=== PATIENT | female | born 1990 | race African-American/Black ===

== ENCOUNTER 2017-03-13 12:53 | Emergency (ER) | payer MEDICAID ==
[~2017-03-13] VITALS: Ht 157.5 cm; Wt 108.0 kg
[~2017-03-13 12:53] MED LIST: CIPR500T2 PO; CYCL5TAB PO; FERR324T4 PO; FLINT2; MEDR150I IM; MELO7.5T4 PO
[2017-03-13 13:17] VITALS: BP 136/87; PULSE 86; RESP 18; TEMP 98.8; O2SAT 100
[2017-03-13] MEDS ORDERED: [UNRECOGNIZED DRUG - REMARK] (13:59)
--- NOTE | 2017-03-13 14:04 | PD ---
HPI Chief Complaint: Complaint Time Seen by Provider: 13:53 Travel History International Travel<30 days: No Contact w/Intl Traveler<30days: No Traveled to known affect area: No History of Present Illness HPI This 26-year-old female is complaining of burning with urination. She says that hurts a lot when she urinates for several minutes after she urinates or abdominal pain. She's had some vaginal discharge. She has had 4 children in the past. He is on control pills. She is currently on Macrobid for urinary tract infection. Her symptoms have been going on for about 6 days. 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13) Diminished Hearing: No Endocrine: No Gastrointestinal Disorders: Yes (GALLSTONES) Genitourinary: Yes (UTI) Hypertension: Yes Immune Disorder: No Kidney Stones: Yes Musculoskeletal: No Neurologic: Yes Psychiatric: Yes Reproductive: No Respiratory: Yes (PNUEMONIA) Immunizations Current: No Migraines: Yes Radiation Therapy: No Sickle Cell Disease: No Sleep Apnea: No ?: Unknown Menopausal: No : 3 Para: 3 Miscarriage: 0 : 0 Past Surgical History AICD: No Arteriovenous Shunt: No Cholecystectomy: Yes Insulin Pump: No Joint Replacement: No Pacemaker: No Social History Alcohol Use: No Tobacco Use: Yes Substance Use: No Allergies-Medications (Allergen,Severity, Reaction): Coded Allergies: levofloxacin (Unverified Allergy, Severe, RASH, 03/13/17) fexofenadine (Unverified Allergy, Intermediate, HIVES, 03/13/17) *MDRO Multi-Drug Resistant Organism (Verified Allergy, Unknown, 08/14/16) MRSA Uncoded Allergies: AZITHROMYACIN (Allergy, Severe, throat swelling and hives, 08/12/15) Reported Meds & Prescriptions Reported Meds & Active Scripts Active Medroxyprogesterone Inj 150 Mg/Ml Inj 150 Mg IM Q90D Reported [abx "starts with n"] Review of Systems General / Constitutional: No: Fever, Chills Eyes: No: Diploplia, Blurred Vision HENT: No: Headaches, Vertigo Cardiovascular: No: Chest Pain or Discomfort, Palpitations Respiratory: No: Cough, Shortness of Breath Gastrointestinal: No: Nausea, Vomiting Genitourinary: Positive: Frequency, Dysuria Musculoskeletal: No: Myalgias Skin: No Rash, No Itching Neurologic: No: Weakness Hematologic/Lymphatic: No: Easy Bruising Physical Exam Narrative GENERAL: Well-developed female SKIN: Focused skin assessment warm/dry. HEAD: Atraumatic. Normocephalic. EYES: Pupils equal and round. No scleral icterus. No injection or drainage. ENT: No nasal bleeding or discharge. Mucous membranes pink and moist. NECK: Trachea midline. No JVD. CARDIOVASCULAR: Regular rate and rhythm. No murmur appreciated. RESPIRATORY: No accessory muscle use. Clear to auscultation. Breath sounds equal bilaterally. GASTROINTESTINAL: Abdomen soft, non-tender, nondistended. Hepatic and splenic margins not palpable. Pelvic: There is slight vaginal discharge. Bimanual exam is difficult. Patient is not very cooperative. There is no obvious mass felt MUSCULOSKELETAL: No obvious deformities. No clubbing. No cyanosis. No edema. NEUROLOGICAL: Awake and alert. No obvious cranial nerve deficits. Motor grossly within normal limits. Normal speech. PSYCHIATRIC: Appropriate mood and affect; insight and judgment normal. Data Data Last Documented VS Vital Signs Date Time Temp Pulse Resp B/P (MAP) Pulse Ox O2 Delivery O2 Flow Rate FiO2 03/13/17 13:17 98.8 86 18 136/87 (103) 100 Orders Orders Gc And Chlamydia Pcr (03/13/17 14:01) Wet Prep Profile (03/13/17 14:01) Urinalysis - C+S If Indicated (03/13/17 14:01) Ed Urine Pregnancytest Poc (03/13/17 14:01) Urine Culture (03/13/17 14:20) Labs Laboratory Tests Test 03/13/17 14:20 03/13/17 14:36 Urine Collection Type VOIDED Urine Color YELLOW Urine Turbidity SLIGHT Urine pH 6.0 Urine Specific [place] 1.025 Urine Protein NEG mg/dL Urine Glucose (UA) NEG mg/dL Urine Ketones NEG mg/dL Urine Occult Blood TRACE Urine Nitrite POS Urine Bilirubin NEG Urine Leukocyte Esterase SMALL Urine WBC 15-19 /hpf Urine Squamous Epithelial Cells 0-3 /hpf Urine Bacteria MANY /hpf Microscopic Urinalysis Comment CULTURE INDICATED Clue Cells (Wet Prep) NONE SEEN Vaginal Trichomonas (Wet Prep) NONE SEEN Vaginal Yeast (Wet Prep) NONE SEEN MDM Medical Decision Making Medical Screen Exam Complete: Yes Emergency Medical Condition: Yes Medical Record Reviewed: Yes Differential Diagnosis Differential includes cervicitis, UTI, Narrative Course Urinalysis shows 15-19 white cells consistent with UTI. She is allergic to Levaquin and is currently on Macrobid. She'll be started on Bactrim Diagnosis Primary Impression: UTI (lower urinary tract infection) Departure Forms: Tests/Procedures, Work Release Enter return to work date: Mar 14, 2017 Scripts Phenazopyridine (Pyridium) 100 Mg Tab 200 MG PO Q8H Y for DYSURIA, #10 TAB 0 Refills Prov: Miki Munoz MD 03/13/17 Sulfamethoxazole-Trimethoprim (Bactrim DS) 800-160 Mg Tab 1 TAB PO BID for Infection, #14 TAB 0 Refills Prov: Miki Munoz MD 03/13/17 Disposition: 01 DISCHARGE HOME Condition: Stable Miki Munoz MD Mar 13, 2017 14:04
[2017-03-13 14:29] LABS: BILIRUBIN, URINE NEG (NEG); GLUCOSE,URINE NEG (NEG); KETONE, URINE NEG (NEG); NITRITE,URINE POS (NEG); URINE LEUKOCYTE ESTERASE SMALL (NEG)
[2017-03-13 14:31] LABS: BLOOD, URINE TRACE (NEG)
[2017-03-13 14:39] LABS: URINE COLOR YELLOW (YELLW/STRAW); WBC, URINE 15-19 /hpf (0-5)
[2017-03-13 14:45] LABS: BACTERIA, URINE MANY /hpf; SQUAMOUS EPITHELIAL CELL URINE 0-3 /hpf (0-5)
[2017-03-13] MEDS ORDERED: BACT800T5 PO (15:18)
[2017-03-13] MEDS ORDERED: PHEN0.4T PO (15:18)
== END 2017-03-13 15:42 | disposition home or self-care (01) ==
LOC: PHED 12:53
DX: N39.0 Urinary tract infection, site not specified (principal); B96.20 Unspecified Escherichia coli [E. coli] as the cause of diseases classified elsewhere
CPT/HCPCS: 81001; 84703; 87077; 87086; 87186; 87210; 87491; 87591; 99284

== ENCOUNTER 2017-06-18 19:38 | Emergency (ER) | payer MEDICAID ==
[~2017-06-18] VITALS: Ht 160 cm; Wt 109.0 kg
[~2017-06-18 19:38] MED LIST changes: +BACT800T5 PO; -CIPR500T2 PO; -CYCL5TAB PO; -FERR324T4 PO; -FLINT2; -MELO7.5T4 PO; +PHEN0.4T PO; +[UNRECOGNIZED DRUG - REMARK]
[2017-06-18 20:23] VITALS: BP 132/57; PULSE 83; RESP 16; TEMP 98.4; O2SAT 100
[2017-06-18 22:49] VITALS: BP 136/72; PULSE 84; RESP 18; O2SAT 99
[2017-06-19 00:30] LABS: BILIRUBIN, URINE NEG (NEG); BLOOD, URINE NEG (NEG); GLUCOSE,URINE NEG (NEG); KETONE, URINE NEG (NEG); NITRITE,URINE POS (NEG); URINE LEUKOCYTE ESTERASE TRACE (NEG)
[2017-06-19 00:40] LABS: URINE COLOR YELLOW (YELLW/STRAW)
[2017-06-19 00:41] LABS: MUCUS URINE FEW /lpf (OCC)
[2017-06-19 00:42] LABS: AMORPHOUS SEDIMENT, URINE SMALL; BACTERIA, URINE MANY /hpf
[2017-06-19 01:05] VITALS: BP 126/70; PULSE 82; RESP 18; O2SAT 99
[2017-06-19 03:30] VITALS: BP 124/74; PULSE 78; RESP 18; O2SAT 98
[2017-06-19] MEDS ORDERED: CEPH-460 PO (03:42)
[2017-06-19] MEDS ORDERED: PERC5TAB12 PO (03:42)
[2017-06-19] MEDS ORDERED: oxyCODONE/ACETAMINOPHEN 7.5 MG/325 MG TAB PO ONE (03:45)
[2017-06-19] MEDS ORDERED: CEPHALEXIN MONOHYDRATE 500 MG CAP PO ONE (03:45)
--- NOTE | 2017-06-19 03:45 | PD ---
HPI Chief Complaint: Pain: Acute or Chronic Time Seen by Provider: 03:22 Travel History International Travel<30 days: No Contact w/Intl Traveler<30days: No Traveled to known affect area: No History of Present Illness HPI The patient is a 26-year-old female who complains of bilateral flank pain, dysuria and frequency for approximately one week. She denies any fever, nausea or vomiting or diarrhea. She also complains of dental pain in tooth #2. She has had dental pain for 4 days. PFSH Past Medical History Arthritis: No Asthma: Yes Anxiety: Yes Depression: No Heart Rhythm Problems: No Cancer: Yes Cardiovascular Problems: Yes High Cholesterol: No Chemotherapy: No Chest Pain: No Congestive Heart Failure: No COPD: No Cerebrovascular Accident: Yes (3 years ago) Diminished Hearing: No Endocrine: No Gastrointestinal Disorders: Yes (GALLSTONES) Genitourinary: Yes (UTI) Heparin Induced Thrombocytopen: No Hypertension: Yes Immune Disorder: No Implanted Vascular Access Dvce: No Kidney Stones: Yes Musculoskeletal: No Neurologic: Yes Psychiatric: Yes Reproductive: No Respiratory: Yes (PNUEMONIA) Immunizations Current: No Migraines: Yes Radiation Therapy: No Sickle Cell Disease: No Sleep Apnea: No Tetanus Vaccination: < 5 Years Influenza Vaccination: Yes ?: Unknown LMP: unknown Menopausal: No : 3 Para: 3 Miscarriage: 0 : 0 Past Surgical History AICD: No Arteriovenous Shunt: No Cholecystectomy: Yes Insulin Pump: No Joint Replacement: No Pacemaker: No Other Surgery: No Social History Alcohol Use: No Tobacco Use: No Substance Use: No Allergies-Medications (Allergen,Severity, Reaction): Coded Allergies: azithromycin (Verified Allergy, Severe, Swelling, 06/18/17) levofloxacin (Unverified Allergy, Severe, RASH, 06/18/17) fexofenadine (Unverified Allergy, Intermediate, HIVES, 06/18/17) *MDRO Multi-Drug Resistant Organism (Verified Allergy, Unknown, 06/18/17) MRSA Reported Meds & Prescriptions Reported Meds & Active Scripts Active No Active Prescriptions or Reported Medications Review of Systems Except as stated in HPI: all other systems reviewed are Neg Physical Exam Narrative GENERAL: The patient is alert, oriented 3 in moderate apparent distress with her suprapubic, bilateral flank discomfort and dental pain in tooth #2. Her vital signs are normal. SKIN: Focused skin assessment warm/dry. HEAD: Atraumatic. Normocephalic. EYES: Pupils equal and round. No scleral icterus. No injection or drainage. ENT: No nasal bleeding or discharge. Mucous membranes pink and moist. NECK: Trachea midline. No JVD. CARDIOVASCULAR: Regular rate and rhythm. No murmur appreciated. RESPIRATORY: No accessory muscle use. Clear to auscultation. Breath sounds equal bilaterally. GASTROINTESTINAL: Abdomen soft, with tenderness to direct palpation in the midline suprapubic area and both flanks, nondistended. Hepatic and splenic margins not palpable. No guarding or rebound is present. MUSCULOSKELETAL: No obvious deformities. No clubbing. No cyanosis. No edema. NEUROLOGICAL: Awake and alert. No obvious cranial nerve deficits. Motor grossly within normal limits. Normal speech. PSYCHIATRIC: Appropriate mood and affect; insight and judgment normal. DENTAL: There appears to be a slight chip on tooth #2. No malocclusion. There is tenderness without any drainable abscess on tooth #2. Data Data Last Documented VS Vital Signs Date Time Temp Pulse Resp B/P (MAP) Pulse Ox O2 Delivery O2 Flow Rate FiO2 06/18/17 22:49 84 18 136/72 (93) 99 Room Air 06/18/17 20:23 98.4 Orders Orders Ed Urine Pregnancytest Poc (06/18/17 23:03) Urinalysis - C+S If Indicated (06/19/17 00:08) Urine Culture (06/19/17 00:25) Labs Laboratory Tests Test 06/19/17 00:25 Urine Color YELLOW Urine Turbidity MOD Urine pH 6.0 Urine Specific [place] 1.027 Urine Protein NEG mg/dL Urine Glucose (UA) NEG mg/dL Urine Ketones NEG mg/dL Urine Occult Blood NEG Urine Nitrite POS Urine Bilirubin NEG Urine Leukocyte Esterase TRACE Urine WBC 9-14 /hpf Urine Squamous Epithelial Cells 6-8 /hpf Urine Amorphous Sediment SMALL Urine Bacteria MANY /hpf Urine Mucus FEW /lpf Microscopic Urinalysis Comment CULTURE INDICATED MDM Medical Decision Making Medical Screen Exam Complete: Yes Emergency Medical Condition: Yes Medical Record Reviewed: Yes Interpretation(s) The urine shows moderate turbidity, specific gravity 1.027, positive nitrite, trace leukocyte esterase, 9-14 white cells and many bacteria and culture is indicated. Differential Diagnosis Cystitis, pyelonephritis, urinary stone, colitis-unlikely, dental infection, drainable dental abscess Narrative Course There is no clinical evidence of drainable dental abscess. She does have a dental infection in tooth #2. The patient also has a cystitis and early pyelonephritis. She has bilateral flank tenderness and suprapubic tenderness as well. Diagnosis Primary Impression: Cystitis Additional Impressions: Kidney infection Dental infection Additional Instructions: It is important to increase your liquid intake. Fighting a kidney infection requires a good urine flow through your kidneys. The antibiotic is one tablet 4 times a day for 10 days. As we discussed, I gave you several refills to cover the time it may take you to see a dentist. Follow-up with a primary care physician this week and a dentist as soon as possible. Med/Other Pt SpecificInfo: Prescription(s) given Scripts Oxycodone-Acetaminophen (Percocet) 5-325 mg Tab 1 TAB PO Q4H Y for PAIN, #30 TAB 0 Refills Prov: Viral Yanez MD 06/19/17 Cephalexin (Keflex) 500 Mg Capsule 500 MG PO Q6H for Infection for 10 Days, #40 CAP 0 Refills Prov: Viral Yanez MD 06/19/17 Disposition: 01 DISCHARGE HOME Condition: Stable Viral Yanez MD Jun 19, 2017 03:45
== END 2017-06-19 04:00 | disposition home or self-care (01) ==
LOC: PHED 19:38
DX: N30.90 Cystitis, unspecified without hematuria (principal); N15.9 Renal tubulo-interstitial disease, unspecified; K04.7 Periapical abscess without sinus; J45.909 Unspecified asthma, uncomplicated; I10 Essential (primary) hypertension; F41.9 Anxiety disorder, unspecified; Z86.73 Personal history of transient ischemic attack (TIA), and cerebral infarction without residual deficits; Z87.442 Personal history of urinary calculi
CPT/HCPCS: 81001; 84703; 87086; 99284

== ENCOUNTER 2017-10-02 08:49 | Emergency (ER) | payer MEDICAID ==
[~2017-10-02] VITALS: Ht 160 cm; Wt 96.0 kg
[~2017-10-02 08:49] MED LIST changes: -BACT800T5 PO; +CEPH-460 PO; -MEDR150I IM; +PERC5TAB12 PO; -PHEN0.4T PO; -[UNRECOGNIZED DRUG - REMARK]
[2017-10-02 08:51] VITALS: BP 129/84; PULSE 100; RESP 20; TEMP 98.9; O2SAT 100
--- NOTE | 2017-10-02 09:24 | PD ---
HPI Chief Complaint: Abdominal Pain Time Seen by Provider: 09:24 Travel History International Travel<30 days: No Contact w/Intl Traveler<30days: No Traveled to known affect area: No History of Present Illness HPI 27-year-old female came to the emergency room with history of pelvic pain radiating to her lower back, vaginal discharge and a bump that she has noticed that her vaginal orifice for past 1-2 weeks. Patient says the bump does not hurt or itch but she can feel it. She is sexually active and has had unprotected sex with her boyfriend. She has noticed similar bumps on her boyfriend's penis but he told her is because he is not circumcised. The discharge she describes as yellowish in color but no foul smell. She has never had STDs in the past. Vital signs are stable. No dysuria or hematuria. [facility] Past Medical History Narrative Medical List of his past medical, surgical, social and family history is reviewed from the nursing note Arthritis: No Asthma: Yes Anxiety: Yes Depression: No Heart Rhythm Problems: No Cancer: Yes (pt said she was told she has ovarian cancer but has not f/u) Cardiovascular Problems: Yes High Cholesterol: No Chemotherapy: No Chest Pain: No Congestive Heart Failure: No COPD: No Cerebrovascular Accident: Yes (x2 3 years ago) Diminished Hearing: No Endocrine: No Gastrointestinal Disorders: Yes (GALLSTONES) Genitourinary: Yes (chronic UTIs) Heparin Induced Thrombocytopen: No Hypertension: Yes Immune Disorder: No Implanted Vascular Access Dvce: No Kidney Stones: Yes Musculoskeletal: No Neurologic: Yes Psychiatric: Yes Reproductive: No Respiratory: Yes (PNEuMONIA) Immunizations Current: No Migraines: Yes Radiation Therapy: No Sickle Cell Disease: No Sleep Apnea: No Tetanus Vaccination: < 5 Years Influenza Vaccination: Yes ?: Unknown Menopausal: No : 4 Para: 4 Miscarriage: 0 : 0 Past Surgical History AICD: No Arteriovenous Shunt: No Cholecystectomy: Yes Insulin Pump: No Joint Replacement: No Pacemaker: No Other Surgery: No Social History Alcohol Use: No Tobacco Use: No Substance Use: No Allergies-Medications (Allergen,Severity, Reaction): Coded Allergies: azithromycin (Verified Allergy, Severe, Swelling, 10/02/17) levofloxacin (Unverified Allergy, Severe, RASH, 10/02/17) fexofenadine (Unverified Allergy, Intermediate, HIVES, 10/02/17) *MDRO Multi-Drug Resistant Organism (Verified Allergy, Unknown, 10/02/17) MRSA Comments List of her allergies reviewed from the nursing note Reported Meds & Prescriptions Reported Meds & Active Scripts Active Macrobid (Nitrofurantoin Monoh/Nitrofur Macro) 100 Mg Cap 100 Mg PO BID 7 Days Narrative Medication List of her home medications reviewed from the nursing note Review of Systems Except as stated in HPI: all other systems reviewed are Neg Genitourinary: Positive: Discharge Physical Exam Narrative GENERAL: Awake, alert, obese, no obvious distress SKIN: Focused skin assessment warm/dry. HEAD: Atraumatic. Normocephalic. EYES: Pupils equal and round. No scleral icterus. No injection or drainage. ENT: No nasal bleeding or discharge. Mucous membranes pink and moist. NECK: Trachea midline. No JVD. CARDIOVASCULAR: Regular rate and rhythm. No murmur appreciated. RESPIRATORY: No accessory muscle use. Clear to auscultation. Breath sounds equal bilaterally. GASTROINTESTINAL: Abdomen soft, non-tender, nondistended. Hepatic and splenic margins not palpable. [employer]MENT [employer]ER: External inspection shows a wart on the perineum on the right wall. Patient had significant pain upon introduction of the speculum but the discharge did not appear to be abnormal. I was unable to see the cervix given her discomfort and her obesity. I was unable to do a proper digital exam once again for the similar reasons. Patient says it has always been uncomfortable for her to do these exams. Swabs for culture and wet mount was collected. MUSCULOSKELETAL: No obvious deformities. No clubbing. No cyanosis. No edema. NEUROLOGICAL: Awake and alert. No obvious cranial nerve deficits. Motor grossly within normal limits. Normal speech. PSYCHIATRIC: Appropriate mood and affect; insight and judgment normal. Data Data Last Documented VS Orders Orders Gc And Chlamydia Pcr (10/02/17 09:39) Wet Prep Profile (10/02/17 09:39) Urinalysis - C+S If Indicated (10/02/17 10:02) Ed Urine Pregnancytest Poc (10/02/17 10:02) Urine Culture (10/02/17 10:10) Nitrofurantoin Monohyd Macrocr (Macrobid (10/02/17 10:45) Ed Discharge Order (10/02/17 10:56) Labs Laboratory Tests Test 10/02/17 10:10 Urine Color YELLOW Urine Turbidity HAZY Urine pH 5.5 Urine Specific [place] 1.026 Urine Protein TRACE mg/dL Urine Glucose (UA) NEG mg/dL Urine Ketones NEG mg/dL Urine Occult Blood NEG Urine Nitrite POS Urine Bilirubin NEG Urine Urobilinogen LESS THAN 2.0 MG/DL Urine Leukocyte Esterase SMALL Urine RBC 3 /hpf Urine WBC 12 /hpf Urine Squamous Epithelial Cells 27 /hpf Urine Bacteria OCC /hpf Urine Mucus MOD /lpf Microscopic Urinalysis Comment CULTURE INDICATED Clue Cells (Wet Prep) NONE SEEN Vaginal Trichomonas (Wet Prep) NONE SEEN Vaginal Yeast (Wet Prep) NONE SEEN Chlamydia trachomatis DNA (PCR) NOT DETECTED Neisseria gonorrhoeae DNA (PCR) NOT DETECTED MDM Medical Decision Making Medical Screen Exam Complete: Yes Emergency Medical Condition: Yes Medical Record Reviewed: Yes Differential Diagnosis STD, herpes, UTI Narrative Course 9:59 AM awaiting for UA and urine . I will do a pelvic exam soon. 10:54 AM UA suggestive of UTI. I have given her dose of Macrobid. Wet mount is negative. I am comfortable discharging her home. If the GC and Chlamydia comes back positive patient will be called. Procedures EKG Prior to Arrival: No Diagnosis Primary Impression: UTI (lower urinary tract infection) Additional Impressions: Pelvic pain Genital warts Referrals: Primary Care Physician 1 week Additional Instructions: Please follow-up with your FARM EQUIPMENT ASSEMBLER for Pap smear. Take the medication as per the prescription direction. Return to the ER if condition worsens or any other new concerns. Med/Other Pt SpecificInfo: Prescription(s) given Scripts Nitrofurantoin Monohydrate Macrocrystals (Macrobid) 100 Mg Cap 100 MG PO BID for Infection for 7 Days, #14 CAP 0 Refills Prov: Km Vigil MD 10/02/17 Disposition: 01 DISCHARGE HOME Condition: Stable Km Vigil MD October 02, 2017 09:24
[2017-10-02 10:37] LABS: BACTERIA, URINE OCC /hpf; BILIRUBIN, URINE NEG (NEG); BLOOD, URINE NEG (NEG); GLUCOSE,URINE NEG (NEG); KETONE, URINE NEG (NEG); MUCUS URINE MOD /lpf (OCC); NITRITE,URINE POS (NEG); PH, URINE 5.5 (5.0-8.5); SQUAMOUS EPITHELIAL CELL URINE 27 /hpf (0-5); URINE COLOR YELLOW (YELLW/STRAW); URINE LEUKOCYTE ESTERASE SMALL (NEG)
[2017-10-02] MEDS ORDERED: NITROFURANTOIN MONOHYD MACROCR 100 MG CAP PO ONE (10:45)
[2017-10-02] MEDS ORDERED: MACR100C2 PO (10:55)
== END 2017-10-02 11:08 | disposition home or self-care (01) ==
LOC: NEPD 08:49
DX: N39.0 Urinary tract infection, site not specified (principal); A63.0 Anogenital (venereal) warts
CPT/HCPCS: 81001; 84703; 87086; 87210; 87491; 87591; 99283